=== PATIENT | male | born 1990 | race Caucasian/White ===

== ENCOUNTER 2016-09-07 21:27 | Emergency (ER) | payer BC, OTHER ==
[~2016-09-07] VITALS: Ht 175.3 cm; Wt 79.0 kg
[2016-09-07] MEDS ORDERED: OMNIPAQUE 350 MG/ML, 100ML BOTTLE ONE (21:42)
[2016-09-07] MEDS ORDERED: HYDROmorphone 1 MG/ML, 1ML ONE ×2 (21:51→22:44)
[2016-09-07] MEDS ORDERED: ONDANSETRON 2MG/ML, 2ML ONE (21:51)
[2016-09-07] MEDS ORDERED: SODIUM CHLORIDE 0.9% 1,000ML IVBOLUS ONE (22:00)
[2016-09-07] MEDS ORDERED: ONDANSETRON 2MG/ML, 2ML IVPush ONE (22:00)
[2016-09-07] MEDS ORDERED: SODIUM CHLORIDE FLUSH 10ML SYR IVF ONE (22:00)
[2016-09-07] MEDS ORDERED: HYDROmorphone 1 MG/ML, 1ML IVPush PRN (22:00)
[2016-09-07] MEDS ORDERED: HYDROmorphone 1 MG/ML, 1ML IV ONE (23:00)
[2016-09-07] MEDS ORDERED: KETOROLAC 30 MG/1 ML ONE (23:44)
[2016-09-07] MEDS ORDERED: DIAZEPAM 5 MG/ML, 2ML ONE (23:45)
[2016-09-08] MEDS ORDERED: KETOROLAC 30 MG/1 ML IVPush ONE
[2016-09-08] MEDS ORDERED: DIAZEPAM 5 MG/ML, 2ML IV ONE
[2016-09-08 00:38] VITALS: BP 106/74
== END 2016-09-08 00:41 | disposition home or self-care (01) ==
LOC: ED 09-08 00:35
DX: S33.5XXA Sprain of ligaments of lumbar spine, initial encounter (principal); S30.1XXA Contusion of abdominal wall, initial encounter; S30.0XXA Contusion of lower back and pelvis, initial encounter; S70.02XA Contusion of left hip, initial encounter; V89.2XXA Person injured in unspecified motor-vehicle accident, traffic, initial encounter; Y93.9 Activity, unspecified; Y92.828 Other wilderness area as the place of occurrence of the external cause; Y99.9 Unspecified external cause status
CPT/HCPCS: 71101; 72110; 72220; 73502; 74177; 96361; 96374; 96375; 99285; J1170; J1885; J2405; J3360; J7030; Q9967; 96360